=== PATIENT | female | born 1955 | race Caucasian/White ===

== ENCOUNTER 2022-01-07 17:11 | Emergency (ER) | payer OTHER ==
[2022-01-07 20:01] LABS: BASOPHIL 0.2 % (0-2); EOSINOPHIL 0 % (0-7); HCT 45.7 % (37.0-47.0); HGB 15.5 g/dl (12.5-16.0); MCH 28.4 pg (25.0-31.0); MCHC 33.9 g/dL (32.0-36.0); MCV 83.7 fL (78.0-100.0); MONOCYTE 5.1 % (0-12); MPV 10.3 fL (6.0-9.5); NEUTROPHIL 87.1 % (41-80); NRBC 0; PLT 462 K/uL (150-400); RBC 5.46 M/uL (4.20-5.40); RDW 12.7 % (11.5-14.0); WBC 14.8 K/uL (4.0-10.5)
[2022-01-07 20:23] LABS: ALBUMIN 4.3 g/dL (3.4-5.0); BILIRUBIN - TOTAL 1.5 mg/dL (0.2-1.0); BUN/CREAT RATIO (CALC) 51.8 RATIO; CREATININE 1.37 mg/dL (0.51-0.95); GLOBULIN (CALCULATION) 4.3 g/dL; POTASSIUM 4.1 mmol/L (3.5-5.1); TOTAL PROTEIN 8.6 g/dL (6.4-8.2)
[2022-01-07 20:25] LABS: LACTIC ACID 2.5 mmol/L (0.4-1.9)
[2022-01-08 02:37] LABS: BILIRUBIN 2+ mg/dL (NEGATIVE); BLOOD TRACE-INTACT Ery/uL (NEGATIVE); CLARITY CLEAR (CLEAR); COLOR YELLOW (YELLOW); GLUCOSE (U) NORMAL (NORMAL); LEUKOCYTES TRACE Leu/uL (NEGATIVE); NITRITE NEGATIVE (NEGATIVE); PROTEIN TRACE (LOW) mg/dL (NEGATIVE); SPECIFIC GRAVITY 1.025 (1.001-1.030); UROBILINOGEN 0.2 mg/dL (0.2-1.0)
[2022-01-08 02:43] LABS: BACTERIA 1+
[2022-01-08 02:44] LABS: TRANSITIONAL EPITHELIAL CELLS RARE
[2022-01-08 02:46] LABS: URINARY RBC RARE
== END 2022-01-08 03:30 | disposition other institution (70) ==
LOC: FER 17:11
PROVIDERS: Emergency Medicine Emergency Medical Services
DX: K80.80 Other cholelithiasis without obstruction (principal); K56.7 Ileus, unspecified; K82.2 Perforation of gallbladder; Z20.822 Contact with and (suspected) exposure to COVID-19
CPT/HCPCS: 36415; 71045; 80053; 81001; 83605; 83690; 84145; 84484; 85025; 93005; J1170; J2270; J2405; J2543; J7030; U0002